=== PATIENT | female | born 1995 | race Caucasian/White ===

== ENCOUNTER 2020-10-05 10:50 | Outpatient (RCR) | payer BC, SELFPAY ==
--- NOTE | 2020-10-05 12:00 | PC.NURSE ---
IN 1005 OUT 1045 HISTORY: Pt. delivered at [facility] at 36 weeks. Infant had no complications after delivery. Mother had high blood pressure and was induced at 36 weeks. Infant is now 8 days old. Infant appears to be well cared for. Infant has been seen by ICP as scheduled. Infant last seen by ICP at 1 week. Mother reports: Infant made weak attempts since , without a successful latch or effective feeding. Mother began pumping within the first 12 hours. Mother will attempt to breast at times. Mother will pump and bottle feed EBM/formula of 50ml every 4 hours. Mother is allowing to wake for feedings. Mother is pumping 50-80 mls each session, mother is not pumping regularly using a Motiff, which she denies difficulties or discomfort with use. Mother wishes: Work with deep latch and effective nursing, with less supplementation and pumping. OBSERVATION: Currently at 6-7 wets per day and 4 Brown/yellow seedy/pasty stools per day. weight: 6#9 Last Weight: 6#1 Pre feeding weight: Post feeding weight: NOT DONE -NO EFFECTIVE FEEDING Infant is able to move tongue freely past gum ridge and both lips easily flange. Mother has everted nipples with no signs of redness, blisters, scabs or abrasions. Mother attempts infant to breast using cradle, infant head is turned to the side and up. He will make eager attempts and unable to draw nipple in. Suggested mother switch to cross cradle. Reviewed feeding cues, frequencies, duration of feedings, feeding elimination flow sheet, and signs of adequate intake. Demonstrated stimulation techniques to wake for feeding. Assisted with infant to breast. Reviewed positioning/alignment in cross cradle, holding breast in U hold and guided asymmetrical latch on. was able to latch correctly within a few attempts. Infant nursed eagerly with steady draws for short bursts and would pause releasing latch, once stimulated to wake infant would eagerly repeat. Demonstrated breast compression to assist with milk flow to keep interested with nursing. Reviewed effective vs ineffective feeding, mother understand is making attempts to latch and not maintaining latch to be effective or transfer milk. Suggested mother work with latch each feeding for 5 minutes, then bottle feed and pump for 20 minutes if feeding every 4 hours and pump 15 minutes if feeding every 3 hours. Discussed once is maintaining latch for 5 minutes without on and off, allow to nurse for 10 minutes then bottle feed and pump. PLAN: Mother will follow above feeding plan . Mother will call with further questions or concerns. Follow up visit scheduled for 10/08/2020.
== END 2020-10-30 09:57 | disposition home or self-care (01) ==
LOC: ANHOBOP 10:50
PROVIDERS: Visit Provider Pediatrics
DX: Z39.1 Encounter for care and examination of lactating mother (principal)
CPT/HCPCS: 99212; G0463

== ENCOUNTER 2021-09-02 17:57 | Emergency (ER) | payer BC, SELFPAY ==
[2021-09-02 18:04] VITALS: BP 133/84; PULSE 80; RESP 20; TEMP 36.7; O2SAT 99
[2021-09-02 18:40] VITALS: BP 147/106; PULSE 85; RESP 18; TEMP 36.7; O2SAT 100
--- NOTE | 2021-09-02 19:10 | PC.NURSE ---
Assuming care of pt.
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
[2021-09-02 20:00] LABS: Appearance Urine Slightly Cloudy (Clear); Bilirubin Urine 1+ (Negative); Blood Urine Negative (Negative); Color Urine Yellow (Yellow); Glucose Urine UA Negative (Negative); Ketones Urine Negative (Negative); Leukocyte Esterase Ur 2+ LEU/UL (Negative); Nitrate Urine Negative (Negative); Protein Urine Negative (Negative); Specific Grav Ur 1.015 (1.001-1.035); Urobilinogen Urine 0.2 mg/dL (<2.0)
[2021-09-02 20:05] LABS: Bacteria Urine Trace /hpf; Mucus Urine Rare /lpf; Squamous Epithelial Cell Urine Many /hpf (Few); WBC Urine 16-20 /hpf
[2021-09-02 20:06] LABS: Add Urine Microscopic? YES
[2021-09-02 20:11] VITALS: BP 129/85; PULSE 71; RESP 18; O2SAT 100
[2021-09-02 20:32] LABS: Basophils Absolute Auto 0.1 K/mm3 (0.0-0.1); Basophils Percent Auto 0.6 % (0.2-1.2); Eosinophils Absolute Auto 0.1 K/mm3 (0-0.3); Eosinophils Percent Auto 0.9 % (0-4.4); Hematocrit 43.9 % (37.0-47.0); Hemoglobin 13.6 g/dL (12.0-15.0); Immature Granulocyte Absolute 0.04 K/mm3 (0.00-0.031); Immature Granulocyte Percent A 0.3 % (0-0.5); Mean Corpuscular Hemoglobin 27.4 pg (26-34); Mean Corpuscular Volume 88.3 fl (80-100); Mean Platelet Volume 9.1 fl (7.4-10.4); Monocytes Absolute Auto 0.9 K/mm3 (0.1-0.6); Monocytes Percent Auto 6.1 % (2.6-8.5); Neutrophils Absolute Auto 9.9 K/mm3 (1.3-6.7); Neutrophils Percent Auto 71.1 % (45.5-73.1); Platelet Count Result 372 k/mm3 (150-375); Red Blood Count 4.97 M/mm3 (4.2-5.4); Red Cell Distribution Width 13.3 % (11.5-14.5); White Blood Count 13.8 K/mm3 (4.5-10.0)
[2021-09-02 20:40] LABS: Acetaminophen < 10 ug/mL (10-30); Salicylate < 1.0 mg/dL (2-20)
[2021-09-02 20:43] LABS: Alanine Aminotransferase 51 U/L (6-35); Albumin Level 4.5 g/dL (3.5-5.1); Alkaline Phosphatase 83 U/L (38-126); Anion Gap 9 mmol/L (8-16); Aspartate Amino Transferase 39 U/L (14-36); Bilirubin,Total 1.2 mg/dL (0.2-1.3); Blood Urea Nitrogen 9 mg/dL (7-17); Calcium 9.1 mg/dL (8.4-10.2); Carbon Dioxide 25 mmol/L (22-30); Chloride 104 mmol/L (98-107); Estimated CRCL calculation 90 ml/min; Estimated Glomerular Filt Rate > 60; Glucose 127 mg/dL (65-110); Potassium 3.4 mmol/L (3.4-5.0); Sodium 138 mmol/L (137-145)
[2021-09-02 20:45] LABS: Amphetamine Screen Urine Negative (Negative); Barbiturate Screen Urine Negative (Negative); Benzodiazepines Screen Urine Negative (Negative); Cannabinoid Screen Urine Positive (Negative); Cocaine Screen Urine Negative (Negative); Methadone Screen Urine Negative (Negative); Opiate Screen Urine Negative (Negative); Phencyclidine Screen Urine Negative (Negative)
[2021-09-02 21:08] LABS: SARS-CoV-2 RNA PCR Negative
[2021-09-02 21:14] LABS: Ethanol < 10 mg/dL (<10)
[2021-09-02 21:56] VITALS: BP 124/85; PULSE 86; RESP 18; O2SAT 100
[2021-09-02] MEDS: CEPHALEXIN 500 MG CAPSULE PO (21:56)
--- NOTE | 2021-09-02 22:03 | PC.NURSE ---
[facility] NOTIFIED AND WILL SEND SOMEONE TO EVALUATE THE PATIENT
[2021-09-03] MEDS: ACETAMINOPHEN 500 MG TABLET 1000 MG PO (00:12)
--- NOTE | 2021-09-03 02:28 | PC.NURSE ---
[facility] called they feel the patient doesn't meet admission criteria. [facility] does not have female beds at this time they recommend us to call back at 0900 to see if they have any beds.
--- NOTE | 2021-09-03 03:59 | PC.NURSE ---
RN faxed pt's information to [facility] for evaluation
[2021-09-03 04:50] VITALS: BP 123/90; PULSE 68; RESP 18; O2SAT 100
[2021-09-03] MEDS: CEPHALEXIN 500 MG CAPSULE PO ×3 (04:50→19:06)
--- NOTE | 2021-09-03 07:51 | PC.NURSE ---
[facility] called for update. Stated she would start calling more facilities at this time.
[2021-09-03 08:14] VITALS: BP 126/84; PULSE 80; RESP 20; O2SAT 100
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
--- NOTE | 2021-09-03 11:49 | PC.NURSE ---
Spoke with Bridgett Quezada. Nurse will return call if accepted.
--- NOTE | 2021-09-03 12:38 | PC.NURSE ---
Spoke with Imelda [phone] from [facility]. They are unable to accept patient because she has no medicaid at this point. Pt is unable to provide a down payment for stay.
--- NOTE | 2021-09-03 13:50 | PC.NURSE ---
spoke with [facility] and the want to speak with patient.
--- NOTE | 2021-09-03 15:00 | PC.NURSE ---
[facility] called and requested to talk with pt. pt connected to [facility] rep.
--- NOTE | 2021-09-03 17:04 | PC.NURSE ---
Chucho bed coordinator at [facility] - called to inform this ED that this pt is accepted and he will call back with a bed number after 1900.
--- NOTE | 2021-09-03 18:47 | PC.NURSE ---
ATTEMPTED TO CALL REPORT TO [facility] AND WAS INFORMED THAT WE WILL NEED TO CALL BACK AFTER 1930 SAV.
[2021-09-03 18:48] VITALS: BP 124/80; PULSE 67; RESP 16; TEMP 36.8; O2SAT 100
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
--- NOTE | 2021-09-03 19:00 | PC.NURSE ---
Assumed care of pt. at this time. Report from DE Arthur
--- NOTE | 2021-09-03 19:00 | PC.NURSE ---
call [phone] for report and bed number.
--- NOTE | 2021-09-03 20:44 | PC.NURSE ---
rn attempted to call pt. report states they are dealing with something and to call back.
--- NOTE | 2021-09-03 21:05 | PC.NURSE ---
Call [facility] at [phone]. Patient been accepted and eta is 01:30-0200.
[2021-09-04 00:15] VITALS: BP 123/87; PULSE 88; RESP 19; O2SAT 97
== END 2021-09-04 00:30 ==
PROVIDERS: Physician Assistant; Emergency Provider Emergency Medicine
DX: F22 Delusional disorders (principal); N30.01 Acute cystitis with hematuria; F41.9 Anxiety disorder, unspecified; F32.9 Major depressive disorder, single episode, unspecified; Z20.822 Contact with and (suspected) exposure to COVID-19
CPT/HCPCS: 36415; 80053; 80307; 81001; 81025; 84443; 85025; 87086; 87088; 99285; A9270; C9803; U0003; U0005

== ENCOUNTER 2022-12-20 09:26 | Emergency (ER) | payer MEDICAID, SELFPAY ==
[2022-12-20 09:26] VITALS: BP 137/97; PULSE 100; RESP 18; TEMP 37.1; O2SAT 100
--- NOTE | 2022-12-20 09:40 | ECG_ITS ---
Measurements Intervals [place] Rate: 102 P: 71 ND: 146 QRS: 66 QRSD: 77 T: 43 QT: 322 QTc: 420 Interpretive Statements SINUS TACHYCARDIA ABNORMAL ECG NO PREVIOUS ECG AVAILABLE FOR COMPARISON Electronically Signed On 12-20-2022 20:16:59 CDT by Joaquin Waterman D.O.
[2022-12-20 10:08] LABS: Basophils Absolute Auto 0.1 K/mm3 (0.0-0.1); Basophils Percent Auto 0.5 % (0.2-1.2); Eosinophils Absolute Auto 0.1 K/mm3 (0-0.3); Eosinophils Percent Auto 0.4 % (0-4.4); Hematocrit 45.1 % (37.0-47.0); Hemoglobin 14.1 g/dL (12.0-15.0); Immature Granulocyte Absolute 0.04 K/mm3 (0.00-0.031); Immature Granulocyte Percent A 0.3 % (0-0.5); Lymphocytes Absolute Auto 1.61 K/mm3 (0.9-3.2); Lymphocytes Percent Auto 10.7 % (18.3-44.2); Mean Corpuscular HGB Conc 31.3 g/dl (32-36); Mean Corpuscular Hemoglobin 28.3 pg (26-34); Mean Corpuscular Volume 90.4 fl (80-100); Mean Platelet Volume 9.2 fl (7.4-10.4); Monocytes Absolute Auto 0.9 K/mm3 (0.1-0.6); Monocytes Percent Auto 6.1 % (2.6-8.5); Neutrophils Absolute Auto 12.3 K/mm3 (1.3-6.7); Platelet Count Result 388 k/mm3 (150-375); Red Blood Count 4.99 M/mm3 (4.2-5.4); Red Cell Distribution Width 12.9 % (11.5-14.5)
[2022-12-20 10:18] LABS: Ethanol < 10 mg/dL (<10); Prothrombin Time 13.5 Seconds (11.1-14.7)
[2022-12-20 10:19] LABS: Partial Thromboplastin Time 27.8 SECONDS (22.3-36.8)
[2022-12-20 10:20] LABS: Alanine Aminotransferase 61 U/L (6-35); Albumin Level 4.8 g/dL (3.5-5.1); Alkaline Phosphatase 85 U/L (38-126); Anion Gap 9 mmol/L (8-16); Aspartate Amino Transferase 67 U/L (14-36); Bilirubin,Total 1.6 mg/dL (0.2-1.3); Blood Urea Nitrogen 13 mg/dL (7-17); Calcium 9.6 mg/dL (8.4-10.2); Carbon Dioxide 25 mmol/L (22-30); Chloride 105 mmol/L (98-107); Estimated CRCL calculation 102 ml/min; Estimated Glomerular Filt Rate > 60; Glucose 102 mg/dL (65-110); Lipase 74 U/L (23-300); Potassium 3.6 mmol/L (3.4-5.0); Sodium 139 mmol/L (137-145)
[2022-12-20 10:32] LABS: Troponin I < 0.012 ng/mL (0.000-0.034)
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
[2022-12-20 11:03] LABS: Appearance Urine Clear (Clear); Bilirubin Urine Negative (Negative); Blood Urine Negative (Negative); Color Urine Yellow (Yellow); Glucose Urine UA Negative (Negative); Ketones Urine 1+ mg/dL (Negative); Leukocyte Esterase Ur Negative LEU/UL (Negative); Nitrate Urine Negative (Negative); Protein Urine Negative (Negative); Specific Grav Ur 1.009 (1.001-1.035); Urobilinogen Urine 0.2 mg/dL (<2.0); pH Urine 7.5 (5.0-9.0)
[2022-12-20 11:35] LABS: Add Urine Microscopic? NO
[2022-12-20 11:37] LABS: Pregnancy On Board Control Positive; Urine Pregnancy Test Negative
[2022-12-20 12:06] LABS: Amphetamine Screen Urine Negative (Negative); Barbiturate Screen Urine Negative (Negative); Benzodiazepines Screen Urine Negative (Negative); Cannabinoid Screen Urine Positive (Negative); Cocaine Screen Urine Negative (Negative); Methadone Screen Urine Negative (Negative); Opiate Screen Urine Negative (Negative); Phencyclidine Screen Urine Negative (Negative)
[2022-12-20 13:01] LABS: SARS-CoV-2 RNA PCR Negative (Negative)
[2022-12-20 13:18] LABS: Troponin I < 0.012 ng/mL (0.000-0.034)
[2022-12-20 14:15] VITALS: BP 142/99; PULSE 70; RESP 18; O2SAT 100
--- NOTE | 2022-12-20 14:15 | PC.NURSE ---
Chica from [facility] called to report the pt was not accepted at that facility due to the involuntary order. She stated there was no one at the office available but when the public relations supervisor arrived at 1500 she would have them review it again.
--- NOTE | 2022-12-20 18:24 | PC.NURSE ---
This RN went into pt room to give ondansetron 4 mg ODT due to pt retching. Pt found disconnected from all monitors screaming at this RN to get her mom on the phone. This RN asked her what her mom's phone number was and she screamed do I look like I know her number? look her up on the internet you stupid bitch . This RN went to inform the provider when the pt followed this RN out of the room. Pt screaming in the halls. Pt unable to be redirected. Security called and pt ran out of ems bay.
--- NOTE | 2022-12-20 18:44 | PC.NURSE ---
Kori from [facility] called to inform this RN that [facility] requested her information to be faxed to them at [phone]
[2022-12-20] MEDS: HALOPERIDOL LACTATE 5 MG/ML VIAL IM (18:56)
[2022-12-20] MEDS: LORazepam INJ (*CRX) 2 MG/ML VIAL 1 MG IM (18:56)
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
--- NOTE | 2022-12-20 19:34 | PC.NURSE ---
This RN assumed care of pt at this time.
[2022-12-20] MEDS: ACETAMINOPHEN 500 MG TABLET 1000 MG PO (19:58)
[2022-12-21 02:49] VITALS: BP 138/84; PULSE 95; RESP 16; O2SAT 100
--- NOTE | 2022-12-21 02:49 | PC.NURSE ---
Pt has been quietly resting in room since 2299. Pt has had no complaints for this RN
--- NOTE | 2022-12-21 08:25 | PC.NURSE ---
Papers faxed to [facility] per [facility] request for possible placement for pt.
--- NOTE | 2022-12-21 08:34 | PC.NURSE ---
Pt asleep with sitter at bedside. RN left pt sleeping will assess when awake.
--- NOTE | 2022-12-21 09:24 | PC.NURSE ---
Pt remains asleep with reg resp. Sitter at bedside.
[2022-12-21 11:29] VITALS: BP 118/80; PULSE 80; RESP 18; TEMP 36.8; O2SAT 99
--- NOTE | 2022-12-21 11:30 | PC.NURSE ---
Pt watching TV cooperative with staff. Coffee ordered per pt request. Sitter at bedside
--- NOTE | 2022-12-21 11:49 | PC.NURSE ---
[facility] called requesting information of UA, UDS, updated set of VS, and medical clearance note faxed to [phone].
--- NOTE | 2022-12-21 12:34 | PC.NURSE ---
Sitter at bedside, pt asleep
[2022-12-21] MEDS: hydrOXYzine HCL 25 MG TABLET 50 MG PO ×2 (13:17→17:38)
--- NOTE | 2022-12-21 15:47 | PC.NURSE ---
1330: assessment unchanged. Pt sleeping with sitter at bedside.
--- NOTE | 2022-12-21 15:48 | PC.NURSE ---
Remains asleep, sitter at bedside.
--- NOTE | 2022-12-21 16:35 | PC.NURSE ---
Pt's chart was faxed to [facility] at this time
--- NOTE | 2022-12-21 16:38 | PC.NURSE ---
Pt remains asleep, sitter at bedside
--- NOTE | 2022-12-21 18:22 | PC.NURSE ---
7340 Pt agitated pacing in room states I'm getting angry pt states she doesn't know where her son is and she is feeling anxious. Requesting repeat Atarax. Dr. Payne informed
--- NOTE | 2022-12-21 23:48 | PC.NURSE ---
Pt states to this RN I don't like you I dont want to talk to you I want a black nurse . Pt requested a shower, this RN told pt she would try to get her to the shower... pt stated to this rn I don't want your help, get out of here . Pt continues to escalate.
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
[2022-12-22] MEDS: LORazepam INJ (*CRX) 2 MG/ML VIAL IM
[2022-12-22] MEDS: HALOPERIDOL LACTATE 5 MG/ML VIAL IM (00:01)
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
[2022-12-22 01:58] VITALS: BP 135/94; PULSE 72; RESP 20; TEMP 36.5; O2SAT 100
--- NOTE | 2022-12-22 08:59 | PC.NURSE ---
Pt is leeping at this time sitter at bedside. Chart faxed to [facility].
[2022-12-22 10:00] VITALS: BP 135/76; PULSE 73; RESP 18; TEMP 36.7; O2SAT 100
--- NOTE | 2022-12-22 12:28 | PC.NURSE ---
Pt accepted at [facility] by dr Wilde, room 209A.
== END 2022-12-22 13:43 ==
PROVIDERS: Physician Assistant; Emergency Provider Emergency Medicine
DX: F41.9 Anxiety disorder, unspecified (principal); F22 Delusional disorders; Z20.822 Contact with and (suspected) exposure to COVID-19; F32.A Depression, unspecified; Z59.00 Homelessness unspecified; R00.0 Tachycardia, unspecified
CPT/HCPCS: 36415; 80053; 80307; 81003; 81025; 83690; 84443; 84484; 85025; 85610; 85730; 87635; 93005; 96372; 99285; A9270; J1630; J2060